=== PATIENT | female | born 1940 | race Caucasian/White ===

== ENCOUNTER 2018-11-10 09:02 | Observation (INO) | payer OTHER ==
[~2018-11-10] VITALS: Ht 170.2 cm; Wt 90.9 kg
[2018-11-10] MEDS ORDERED: GLUCOPHAGE500 MG PO ×2 (09:07)
[2018-11-10] MEDS ORDERED: COREG 3.1253.125 MG PO (09:07)
[2018-11-10] MEDS ORDERED: LEVEMIR FL100 UNIT/1 SQ (09:08)
[2018-11-10] MEDS ORDERED: PLAVIX75 MG PO (09:08)
[2018-11-10] MEDS ORDERED: NORVASC5 MG PO (09:09)
[2018-11-10] MEDS ORDERED: PRAVACHOL40 MG PO (09:09)
[2018-11-10 09:45] VITALS: BP 136/68
[2018-11-10 09:52] LABS: BASOPHILS 0.4 % (0-2); EOSINOPHILS 0.4 % (0-7); HEMATOCRIT 38.6 % (36.0-48.0); HEMOGLOBIN 13.1 g/dL (12-16); IMMATURE GRANULOCYTES 0.2 % (0-5); LYMPHOCYTES 24.7 % (15-50); MCH 29.4 pg (26.0-34.0); MCHC 33.9 g/dL (31.0-37.0); MCV 86.7 fL (80.0-100.0); MEAN PLATELET VOLUME 9.6 fL (7.4-10.4); MONOCYTES 6.8 % (2-11); NEUTROPHILS 67.5 % (40-80); PLATELET COUNT 161 10x3/uL (130-400); RBC 4.45 10x6/uL (4.00-5.40); RDW 13.4 % (11.5-14.5); WBC 4.6 10x3/uL (4.8-10.8)
[2018-11-10 10:01] LABS: APTT 30.4 SECONDS (22.8-39.4); INR 1.01 (0.85-1.17); PROTIME 12.8 SECONDS (11.6-15.0)
[2018-11-10 10:09] LABS: ALBUMIN 4.1 g/dL (3.4-5.0); ALKALINE PHOSPHATASE 49 U/L (46-116); ALT (SGPT) 25 U/L (10-68); BILIRUBIN - TOTAL 0.47 mg/dL (0.2-1.3); CALC OSMOLALITY 287 mosm/kg (275-300); CALCIUM 9.2 mg/dL (8.5-10.1); CARBON DIOXIDE 29.7 mmol/L (21.0-32.0); CHLORIDE - SERUM 105 mmol/L (98-107); CREATININE - SERUM 0.8 mg/dL (0.6-1.3); GLUCOSE 141 mg/dL (74-106); POTASSIUM - SERUM 3.7 mmol/L (3.5-5.1); PROTEIN - SERUM 7.5 g/dL (6.4-8.2); SODIUM 143 mmol/L (136-145); UREA NITROGEN 16 mg/dL (7-18); eGFR NON AFRICAN AMERICAN 74 mL/min (90-120)
[2018-11-10 10:19] LABS: CKMB 1.5 U/L (0.0-3.6); CREATINE KINASE 81 UL (21-215); MAGNESIUM - SERUM 1.9 mg/dL (1.8-2.4); THYROID STIMULATING HORMONE 1.24 uIU/mL (0.36-3.74)
[2018-11-10 10:30] VITALS: BP 141/63
[2018-11-10 10:30] LABS: TROPONIN-I < 0.017 ng/mL (0.000-0.060)
[2018-11-10 11:16] LABS: APPEARANCE CLEAR (CLEAR); BILIRUBIN NEGATIVE (NEGATIVE); COLOR STRAW (YELLOW); GLUCOSE NEGATIVE (NEGATIVE); KETONE NEGATIVE (NEGATIVE); NITRITE NEGATIVE (NEGATIVE); PROTEIN NEGATIVE (NEGATIVE); SPECIFIC GRAVITY 1.005 (1.005-1.020); UROBILINOGEN NORMAL (NORMAL)
[2018-11-10 11:50] LABS: CHOL - HDL RATIO 1.8 ratio (2.3-4.1); LDL-HDL RATIO 0.7 ratio (1.5-3.5)
[2018-11-10 14:19] VITALS: BP 134/61; Ht 170.2 cm; Wt 90.9 kg
[2018-11-10 16:26] LABS: ERYTHROCYTE SEDIMENTATION RATE 8 mm/hr (0-30)
[2018-11-10 20:00] VITALS: BP 131/59
[2018-11-11] VITALS: BP 128/61
[2018-11-11 03:57] LABS: BASOPHILS 0.3 % (0-2); EOSINOPHILS 0.8 % (0-7); HEMATOCRIT 37.3 % (36.0-48.0); HEMOGLOBIN 12.5 g/dL (12-16); LYMPHOCYTES 37.8 % (15-50); MCH 29.4 pg (26.0-34.0); MCHC 33.5 g/dL (31.0-37.0); MCV 87.8 fL (80.0-100.0); MEAN PLATELET VOLUME 10.1 fL (7.4-10.4); MONOCYTES 10.7 % (2-11); NEUTROPHILS 50.4 % (40-80); PLATELET COUNT 151 10x3/uL (130-400); RBC 4.25 10x6/uL (4.00-5.40); RDW 13.7 % (11.5-14.5); WBC 3.8 10x3/uL (4.8-10.8)
[2018-11-11 04:00] VITALS: BP 125/49
[2018-11-11 04:14] LABS: CALC OSMOLALITY 287 mosm/kg (275-300); CALCIUM 8.9 mg/dL (8.5-10.1); CARBON DIOXIDE 25.1 mmol/L (21.0-32.0); CHLORIDE - SERUM 106 mmol/L (98-107); CREATININE - SERUM 0.7 mg/dL (0.6-1.3); GLUCOSE 175 mg/dL (74-106); MAGNESIUM - SERUM 2.1 mg/dL (1.8-2.4); POTASSIUM - SERUM 3.7 mmol/L (3.5-5.1); SODIUM 141 mmol/L (136-145); UREA NITROGEN 20 mg/dL (7-18); eGFR NON AFRICAN AMERICAN 86 mL/min (90-120)
[2018-11-11 09:02] VITALS: BP 158/60
[2018-11-11 13:57] VITALS: BP 141/49
== END 2018-11-11 16:32 | disposition home or self-care (01) ==
LOC: D.ER 09:02 → EDBD 09:02 → D.MS 11:33 → OBSVTIME 11:35 → D.MS 11-11 16:32
PROVIDERS: Family Medicine; ADMIT Internal Medicine Nephrology; ATTEND Internal Medicine Nephrology
DX: G45.9 Transient cerebral ischemic attack, unspecified (principal); R42 Dizziness and giddiness; I10 Essential (primary) hypertension; E11.65 Type 2 diabetes mellitus with hyperglycemia; I25.10 Atherosclerotic heart disease of native coronary artery without angina pectoris